=== PATIENT | male | born 1985 | race Caucasian/White ===

== ENCOUNTER 2018-12-21 13:26 | Emergency (ER) | payer OTHER ==
[2018-12-21 13:33] VITALS: RESP 18
[2018-12-21] MEDS ORDERED: methylPREDNISolone SOD SUCCI 125 MG/2 ML VIAL IM ONE (13:55)
[2018-12-21] MEDS ORDERED: IPRATROPIUM-ALBUTEROL 3 ML NEB INHALATION STA (13:55)
--- NOTE | 2018-12-21 14:31 | ED ---
General Adult HPI - General Chief complaint: Upper Respiratory Infection Stated complaint: cough Time Seen by Provider: 12/21/18 13:40 Source: patient, RN notes reviewed Mode of arrival: ambulatory Limitations: no limitations - History of Present Illness Initial comments: 33-year-old male with a past medical history of asthma, alcoholism presents for a productive cough 5 days. Patient is currently in [facility] and they wanted him to be evaluated. Admits to mild shortness of breath but denies any difficulty breathing. States he is coughing up green sputum. Denies fevers or chills. Does admit to a history of asthma, denies history of COPD. Does admit to smoking. Patient has no other complaints at this time including chest pain, abdominal pain, nausea or vomiting, headache, or visual changes. - Related Data Previous Rx's Medication Instructions Recorded Albuterol Inhaler [Ventolin Hfa 1 - 2 puff INHALATION Q6HR PRN #1 12/21/18 Inhaler] inhaler Azithromycin [Zithromax Z-pack] 250 mg PO DIRECTED #6 tab 12/21/18 predniSONE 50 mg PO DAILY #5 tablet 12/21/18 Allergies Allergy/AdvReac Type Severity Reaction Status Date / Time No Known Allergies Allergy Verified 12/21/18 13:33 Review of Systems ROS Statement: Those systems with pertinent positive or pertinent negative responses have been documented in the HPI. ROS Other: All systems not noted in ROS Statement are negative. Past Medical History Past Medical History: No Reported History History of Any Multi-Drug Resistant Organisms: None Reported Past Surgical History: No Surgical Hx Reported Past Psychological History: Bipolar, Depression Smoking Status: Current every day smoker Past Alcohol Use History: Abuse, Daily Past Drug Use History: None Reported General Exam Limitations: no limitations General appearance: alert, in no apparent distress (Well appearing, sitting up. No respiratory distress. Pleasant.) Head exam: Present: atraumatic, normocephalic, normal inspection Eye exam: Present: normal appearance, PERRL, EOMI. Absent: scleral icterus, conjunctival injection, periorbital swelling ENT exam: Present: normal exam, mucous membranes moist Neck exam: Present: normal inspection, full ROM. Absent: tenderness, meningismus, lymphadenopathy Respiratory exam: Present: wheezes (Wheezing noted throughout lung rosas). Absent: respiratory distress, rales, rhonchi, stridor Cardiovascular Exam: Present: regular rate, normal rhythm, normal heart sounds. Absent: systolic murmur, diastolic murmur, rubs, gallop, clicks GI/Abdominal exam: Present: soft, normal bowel sounds. Absent: distended, tenderness, guarding, rebound, rigid Neurological exam: Present: alert, oriented X3, CN II-XII intact Psychiatric exam: Present: normal affect Course Vital Signs 12/21/18 12/21/18 12/21/18 13:30 14:16 14:25 Temperature 98.5 F Pulse Rate 89 84 86 Respiratory 18 Rate Blood Pressure 110/67 O2 Sat by Pulse 95 Oximetry Procedures - Smoking Cessation Time Spent Discussing Smoking Cessation w/Patient (Minutes): 3 Patient Acknowledges Need for Cessation: Yes Medical Decision Making - Medical Decision Making 33-year-old male presents to the emergency department for chief cough 5 days. Cough is productive. Patient does admit to asthma and smoking history. Patient also currently at [facility] for alcoholism. On exam patient has wheezing in lung rosas bilaterally. Vitals are stable. No respiratory distress. X-ray shows no acute pulmonary process. Patient was given DuoNeb and steroids in the emergency department and did have improvement of symptoms. Patient does not currently have an albuterol inhaler so will be prescribed as outpatient. He will also be given outpatient course of steroids as well as Z-Cheko. Patient will follow-up with primary care in 1-2 days. He will return here for has any worsening symptoms.I discussed this case with attending Dr. Bruner who agrees with this assessment and treatment plan. Disposition Clinical Impression: Cough, Asthma exacerbation Disposition: HOME SELF-CARE Condition: Good Instructions (If sedation given, give patient instructions): Upper Respiratory Infection (ED), Asthma (ED) Additional Instructions: Please take antibiotics during today. Take steroids starting tomorrow. Use inhaler as needed. Follow-up with primary care in 1-2 days. If you have any worsening symptoms or symptoms are not resolving return to the emergency department. Prescriptions: predniSONE 50 mg PO DAILY #5 tablet Albuterol Inhaler [Ventolin Hfa Inhaler] 1 - 2 puff INHALATION Q6HR PRN #1 inhaler PRN Reason: Shortness Of Breath Azithromycin [Zithromax Z-pack] 250 mg PO DIRECTED #6 tab Is patient prescribed a controlled substance at d/c from ED?: No Referrals: Veronique Rojo MD [Primary Care Provider] - 1-2 days Time of Disposition: 15:15
--- NOTE | 2018-12-21 14:41 | XR ---
EXAMINATION TYPE: XR chest 2V DATE OF EXAM: 12/21/2018 COMPARISON: None INDICATION: Cough history of asthma TECHNIQUE: Frontal and lateral views of the chest are obtained. FINDINGS: The heart size is normal. The pulmonary vasculature is normal. The lungs are clear. Good inspiratory effort is present. Some mild hyperinflation may be present whi ch can be associated with asthma. IMPRESSION: 1. No acute pulmonary process.
[2018-12-21 15:30] VITALS: BP 125/58; PULSE 70; TEMP 97.8
== END 2018-12-21 15:30 | disposition home or self-care (01) ==
LOC: EC 13:26
DX: J45.901 Unspecified asthma with (acute) exacerbation (principal); F17.200 Nicotine dependence, unspecified, uncomplicated; Z71.6 Tobacco abuse counseling
CPT/HCPCS: 94640; 71046; 99285; 99406; 96372; J2930